=== PATIENT | female | born 1960 | race African-American/Black ===

== ENCOUNTER 2018-12-17 10:37 | Day surgery (SDC) | payer MEDICARE ==
[~2018-12-17] VITALS: Ht 167.6 cm; Wt 102.0 kg
[2018-12-17] VITALS (11 sets, daily range): BP systolic 120–165; BP diastolic 68–101; PULSE 64–80; TEMP 98
[2018-12-17 11:35] LABS: HEMOGLOBIN 11.4 g/dl (12.5-16.0); MEAN CELL VOLUME 91 fl (80.0-100.0); MEAN CORPUSCULAR HEMOGLOBIN 29 pg (27.0-31.0); MEAN CORPUSCULAR HGB CONC 32 g/dl (33.0-37.0); MEAN PLATELET VOLUME 10.5 fl (7.4-10.4); PLATELET COUNT 272 K/mm3 (130-400); RED BLOOD COUNT 3.95 M/mm3 (4.10-5.30); REDCELL DISTRIBUTION WIDTH-CV 13.2 % (11.5-14.5)
[2018-12-17] MEDS ORDERED: ZOCOR 80MG80 MG PO (11:36)
[2018-12-17] MEDS ORDERED: NORVASC 10MG10 MG PO (11:37)
[2018-12-17] MEDS ORDERED: PRINZIDE 25 MG-1 TAB PO (11:37)
[2018-12-17] MEDS ORDERED: ZANTAC 150MG T150 MG PO (11:38)
[2018-12-17] MEDS ORDERED: ZYRTEC 10MG10 MG PO (11:39)
[2018-12-17 11:40] LABS: PROTHROMBIN TIME 11.8 SECONDS (9.7-12.8)
[2018-12-17] MEDS ORDERED: CATAPRES 0.1MG0.1 MG PO (11:40)
[2018-12-17] MEDS ORDERED: ASPIRIN E.C. 8181 MG PO (11:41)
[2018-12-17 11:48] LABS: CALCIUM 9.6 mg/dL (8.4-10.2); CREATININE, serum 0.75 (0.52-1.25); POTASSIUM 3.6 mmol/L (3.4-5.0)
--- NOTE | 2018-12-17 12:35 | NUR ---
SEE MERGE DOCUMENTATION FOR MEDICATION ADMINISTRATION TIMES AND INTRA/POST PROCEDURE SEDATION ASSESSMENTS.
[2018-12-17] MEDS ORDERED: LASIX 40MG TABL40 MG PO (13:14)
--- NOTE | 2018-12-17 13:30 | NUR ---
Pt returned to [facility] 12 per bed s/p heart cath. Pt resting well, at bedside.
--- NOTE | 2018-12-17 16:00 | NUR ---
L radial band removed, site remains soft, C/D/I covered with bandaid and gauze and wrapped with coban.
--- NOTE | 2018-12-17 16:15 | NUR ---
Pt has ambulated, voided and nicolette PO intake s n/v. PIV removed with catheter intact.
--- NOTE | 2018-12-17 17:00 | NUR ---
Pt discharged per w/c by nurse with .
== END 2018-12-17 17:37 | disposition home or self-care (01) ==
LOC: COL.CAR 10:37
PROVIDERS: Internal Medicine Cardiovascular Disease
DX: I25.118 Atherosclerotic heart disease of native coronary artery with other forms of angina pectoris (principal); I10 Essential (primary) hypertension; I51.7 Cardiomegaly; E78.5 Hyperlipidemia, unspecified; I69.328 Other speech and language deficits following cerebral infarction; I69.354 Hemiplegia and hemiparesis following cerebral infarction affecting left non-dominant side; Z79.899 Other long term (current) drug therapy; Z79.82 Long term (current) use of aspirin; E78.00 Pure hypercholesterolemia, unspecified; Z90.710 Acquired absence of both cervix and uterus; Z82.49 Family history of ischemic heart disease and other diseases of the circulatory system; K21.9 Gastro-esophageal reflux disease without esophagitis; E66.9 Obesity, unspecified; Z68.35 Body mass index [BMI] 35.0-35.9, adult; G56.21 Lesion of ulnar nerve, right upper limb
CPT/HCPCS: J1644; J1940; J2250; J3010; Q9967